=== PATIENT | male | born 1995 | race American Indian/Alaskan Native ===

== ENCOUNTER 2020-09-16 00:08 | Emergency (ER) | payer OTHER, SELFPAY ==
[2020-09-16] MEDS ORDERED: ZIPRASIDONE MESYLATE 20 MG VIAL IM ONE ×2 (00:57→11:49)
--- NOTE | 2020-09-16 00:58 | Emergency Department Report ---
<KRISTIESAMANTHA - Last Filed: 09/16/20 13:28> ED Psych HPI - General Chief Complaint: Psych Stated Complaint: SUICIDAL/MH Time Seen by Provider: 09/16/20 00:55 - Related Data Allergies Allergy/AdvReac Type Severity Reaction Status Date / Time No Known Allergies Allergy Unverified 09/16/20 00:25 ED Medical Decision Making - Lab Data Result diagrams: 09/16/20 00:55 09/16/20 00:55 - Medical Decision Making Psychiatric team did not recommend acute inpatient treatment. Patient is discharged home. Outpatient follow-up recommended in 7 to 14 days. ED Disposition Clinical Impression: Suicidal ideation, Hallucinations, Agitation Insomnia Qualifiers: Insomnia type: primary Qualified Code(s): F51.01 - Primary insomnia Disposition: DC- TO HOME OR SELFCARE Is pt being admited?: No Does the pt Need Aspirin: No Condition: Stable Additional Instructions: Professional and Agency Contacts To help [facility] Crises (01/10) [place] Crisis Line: Suicide Prevention Line: Crisis Text Line: Text START to 485329 Emergency: 911 Outpatient COMMUN[facility] Behavioral Health Resources: DEMARIANAB: [facility] [address], [place] [address] [facility] [address] [place] [address] Saturday thru Saturday - 8am - 5pm Call to schedule an assessment for mental health and substance abuse programs [facility] Address: [address] [place] [address] Saturday thru Saturday- 7am-2pm [facility] Address: [address] [place] [address] Saturday thru Saturday: 8:30AM-5PM Referrals: PRIMARY CARE, [Primary Care Provider] - 3-5 Days <CHELSIE ROSS III - Last Filed: 09/21/20 23:06> ED Psych HPI - General Source: patient, EMS Mode of arrival: Ambulatory - History of Present Illness Initial Comments: Patient is a 25-year-old male who presents emergency room with complaints of suicidal ideations. Patient is suicidal ideation follow-up 2 weeks. Patient states his suicidal thoughts are becoming worse. Patient states he would like to cut his head off. Patient states he can plan to cut his head off for a while. Patient states he had this in the past. Patient states he is run out of his psychiatric medications. Patient states that he is not feeling well. Patient also states he has not slept for 5 days. Patient denies homicidal thoughts. Patient also complains of hallucinations. Patient also complains of depression. Patient denies recent travel. Patient denies recent international travel. Patient denies exposure to the novel coronavirus. Patient denies sick contacts. Patient denies fever and chills. Patient denies cough. Patient denies diarrhea. Patient denies coming in contact with anybody with symptoms of the novel coronavirus. MD Complaint: suicidal ideation, feels depressed -: Sudden Associated Psychiatric Symptoms: depression, suicidal ideation, racing thoughts, visual hallucinations History of same: Yes Quality: constant Improves With: none Worsens With: none Context: not taking psychiatric, significant life stressor Associated Symptoms: insomnia. denies: confusion, headache, shortness of b reath, nausea, vomiting If Self Harm: admits thoughts of, has plan ED Review of Systems ROS: Stated complaint: SUICIDAL/MH Other details as noted in HPI Constitutional: denies: chills, fever Eyes: denies: eye pain, eye discharge, vision change ENT: denies: ear pain, throat pain Respiratory: denies: cough, shortness of breath, wheezing Cardiovascular: denies: chest pain, palpitations Endocrine: no symptoms reported Gastrointestinal: denies: abdominal pain, nausea, diarrhea Genitourinary: denies: urgency, dysuria Musculoskeletal: denies: back pain, joint swelling, arthralgia Skin: denies: rash, lesions Neurological: denies: headache, weakness, paresthesias Psychiatric: as per HPI, depression, visual hallucinations, suicidal thoughts. denies: anxiety Hematological/Lymphatic: denies: easy bleeding, easy bruising ED Past Medical Hx - Past Medical History Previous Medical History?: Yes Hx Psychiatric Treatment: Yes (bipolar, schizophrenia, depression) - Surgical History Past Surgical History?: No - Family History Family history: no significant - Social History Smoking Status: Never Smoker Substance Use Type: None ED Physical Exam - General Limitations: No Limitations General appearance: alert, in no apparent distress - Head Head exam: Present: atraumatic, normocephalic - Eye Eye exam: Present: normal appearance - ENT ENT exam: Present: mucous membranes moist - Neck Neck exam: Present: normal inspection - Respiratory Respiratory exam: Present: normal lung sounds bilaterally. Absent: respiratory distress - Cardiovascular Cardiovascular Exam: Present: regular rate, normal rhythm. Absent: systolic murmur, diastolic murmur, rubs, gallop - GI/Abdominal GI/Abdominal exam: Present: soft, normal bowel sounds - Rectal Rectal exam: Present: deferred - Extremities Exam Extremities exam: Present: normal inspection - Back Exam Back exam: Present: normal inspection - Neurological Exam Neurological exam: Present: alert, oriented X3 - Psychiatric Psychiatric exam: Present: agitated, flat affect - Skin Skin exam: Present: warm, dry, intact, normal color. Absent: rash ED Course Vital Signs 09/16/20 09/16/20 09/16/20 00:34 00:45 07:42 Temperature 98.2 F 98.2 F Pulse Rate 128 H 80 Respiratory 16 16 16 Rate Blood Pressure 150/81 Blood Pressure 109/53 [Right] O2 Sat by Pulse 95 95 98 Oximetry - Reevaluation(s) Reevaluation #1: Initial valuation done. Patient placed on a ER hold. Patient is agitated and restless. Patient will be given Geodon. 09/16/20 00:57 Reevaluation #2: Patient's agitation has improved. Patient is resting well. 09/16/20 03:33 Reevaluation #3: Patient is medically cleared. Patient will remain in the ER as an ER hold until the patient is cleared by psychiatry and mental health team. Patient's final disposition will come from our psychiatry mental health team. 09/16/20 04:33 ED Medical Decision Making - Lab Data Result diagrams: 09/16/20 00:55 09/16/20 00:55 - Medical Decision Making Patient is a 25-year-old male who presents emergency room for suicidal ideation. Patient had a plan to cut open headache. Patient also complained of hallucinations. Patient also complained of not sleeping for 5 days. Patient was given 20 g Geodon due to restlessness and agitation. Patient responded well to Geodon. Patient had labs done which were essentially unremarkable. Patient is medically cleared at this time. Patient is final disposition will come from our psychiatry team. Patient will remain in the ER as an ER hold until the patient is cleared by psychiatry and mental health team. - Differential Diagnosis Suicidal ideation, insomnia, hallucination, psychosis Critical care attestation.: If time is entered above; I have spent that time in minutes in the direct care of this critically ill patient, excluding procedure time. ED Disposition Is pt being admited?: No Does the pt Need Aspirin: No Time of Disposition: 04:34
[2020-09-16] MEDS ORDERED: WATER FOR INJ Sterile (PF) 10 ML ONE (01:11)
[2020-09-16 01:28] LABS: BUN/Creatinine Ratio 13; Blood Urea Nitrogen 12 mg/dL (9-20); Calcium 9.9 mg/dL (8.4-10.2); Hemolysis Index 8
[2020-09-16 01:33] LABS: Hematocrit 41.4 % (35.5-45.6); Red Blood Count 4.81 M/mm3 (3.65-5.03)
[2020-09-16 01:34] LABS: Basophils % (Auto) 0.4 % (0.0-1.8); Eosinophils # (Auto) 0.1 K/mm3 (0.0-0.4); Eosinophils % (Auto) 0.8 % (0.0-4.3); Lymphocytes # (Auto) 1.8 K/mm3 (1.2-5.4); Lymphocytes % (Auto) 23.6 % (13.4-35.0); Mean Corpuscular HGB Conc 34 % (32-34); Mean Corpuscular Volume 86 fl (84-94); Monocytes # (Auto) 0.6 K/mm3 (0.0-0.8); Monocytes % (Auto) 8.1 % (0.0-7.3); Platelet Count 286 K/mm3 (140-440); Red Cell Distribution Width 12.8 % (13.2-15.2)
[2020-09-16 09:33] VITALS: BP 109/53
--- NOTE | 2020-09-16 10:22 | Event Note ---
S: Sleeping O: Stable vital signs A: Suicidal ideation patient is medically clear for psychiatric care P: Awaiting treatment recommendations by psychiatric team
--- NOTE | 2020-09-16 11:50 | Consultation ---
History of Present Illness - Reason for Consult Consult date: 09/16/20 Reason for consult: Suicidal ideation - History of Present Psychiatric Illness Per Ed Note: Patient is a 25-year-old male who presents emergency room with complaints of suicidal ideations. Patient is suicidal ideation follow-up 2 weeks. Patient states his suicidal thoughts are becoming worse. Patient states he would like to cut his head off. Patient states he can plan to cut his head off for a while. Patient states he had this in the past. Patient states he is run out of his psychiatric medications. Patient states that he is not feeling well. Patient also states he has not slept for 5 days. Patient denies homicidal thoughts. Patient also complains of hallucinations. Patient also complains of depression. Kb Ortiz is a 25 year old male with a history Bipolar and Schizophrenia who presents to the Ed for suicidal Ideation. Patient was seen in the Ed waiting room. Patient did not want to speak with this race and sports book writer however, he gave me his care takes number and states he wants to go home and denies suicidal/ homicidal ideation. Collateral information from the patient's film processing utility worker at the [facility] he [facility] states that patient is positive for COVID and was quarantine at a hotel for the past 7 days. She reports that the patient used "weed" resulting to his erratic behaviors and suicidal thought. PAST PSYCHIATRIC HISTORY: Unable to obtain PAST MEDICAL HISTORY: None reported or document Family Psychiatric History: None reported or documented SOCIAL HISTORY Unable to call in REVIEW OF SYSTEMS Unable to adequately assess MENTAL STATUS EXAMINATION General Appearance and Behavior: Age appropriate, wearing appropriate clothes, cooperative, polite with questioning, fair eye contact, calm Cooperation: cooperative Psychomotor Behavior: Psychomotor normal Mood: ok Affect and affective range: congruent with stated mood Thought Process:Goal directed Thought Content:Denies hallucinations Speech: Normal volume, Regular rate and rhythm Suicidal Ideation: Denies Homicidal Ideation: Denies hallucination:Denies Delusions:None Impulse Control: Intact Insight and Judgment: Limited Memory: Intact Attention: distractible Orientation: Alert and oriented Diagnoses: Major Depressive Disorder, Recurrent, Moderate- F33.1 Treatment Plan Continue Home meds. PSYCHOTHERAPY: Supportive psychotherapy provided MEDICAL: Per primary team DELIRIUM PRECAUTIONS: Please re-orient patient frequently, keep lights on during the day, and minimize benzodiazepines and opiates as these medications could worsen patient's confusion. IS ARCHITECT: Per medical team DISPOSITION: Do not recommend acute psychiatric inpatient treatment Will sign off Patient will follow up with psych outpatient 7- 14 days post discharge. Thank you for the consult. Please contact with any questions and/or concerns. Case staffed with Dr. Zambrano Medications and Allergies Allergies Allergy/AdvReac Type Severity Reaction Status Date / Time No Known Allergies Allergy Unverified 09/16/20 00:25 Mental Status Exam - Vital signs Last Vital Signs Temp 98.2 F 09/16/20 07:42 Pulse 80 09/16/20 07:42 Resp 16 09/16/20 07:42 BP 109/53 09/16/20 07:42 Pulse Ox 98 09/16/20 07:42 Results Result Diagrams: 09/16/20 00:55 09/16/20 00:55 Abnormal lab results 09/16/20 09/16/20 09/16/20 Range/Units 00:55 00:55 00:55 RDW 12.8 L (13.2-15.2) % [place] % (Auto) 8.1 H (0.0-7.3) % Salicylates < 0.3 L (2.8-20.0) mg/dL Acetaminophen 5.0 L (10.0-30.0) ug/mL All other labs normal.
== END 2020-09-16 15:45 | disposition home or self-care (01) ==
LOC: ED 00:08
DX: F51.01 Primary insomnia (principal); R45.1 Restlessness and agitation; F25.0 Schizoaffective disorder, bipolar type; Z20.822 Contact with and (suspected) exposure to COVID-19
CPT/HCPCS: 36415; 80048; 85025; 99284; J3486; U0003; 80320; G0480